=== PATIENT | female | born 1995 | race Caucasian/White ===

== ENCOUNTER → 2019-10-30 13:32 | Outpatient (CLI) | payer MEDICAID, SELFPAY ==
[2019-10-30 10:21] VITALS: BMI 24.0
[2019-10-30 17:46] LABS: Chlamydia Trachomatis by PCR Negative (Negative); Neisserai gonorrhoeae by PCR Negative (Negative); Probe Check PASS; Sample Adequacy Control PASS; Specimen Processing Control PASS
[2019-11-02 15:45] LABS: HPV Reflexed? NOT INDICATED
== END ==
PROVIDERS: Referring Provider Obstetrics & Gynecology; Visit Provider Obstetrics & Gynecology
DX: Z34.00 Encounter for supervision of normal first pregnancy, unspecified trimester (principal); Z12.4 Encounter for screening for malignant neoplasm of cervix
CPT/HCPCS: 87086; 87088; 87491; 87591; 88175; G0145

== ENCOUNTER → 2019-11-13 10:35 | Outpatient (CLI) | payer MEDICAID, SELFPAY ==
[2019-10-30 10:21] VITALS: BMI 24.0
[2019-11-13 10:52] LABS: Absolute Lymphocyte Count 1.62 X10^3/uL (0.83-4.51); Absolute Neutrophil Count 3.8 X10^3/uL (2.0-7.7); Basophil# 0.02 X10^3/uL; Basophil% 0.3 % (0-1); Eosinophil# 0.08 X10^3/uL; Eosinophils% 1.3 % (0-5); Hematocrit 37.4 % (37-47); Lymphocyte # 1.62 X10^3/ul (4.0); Lymphocyte % 27.1 % (19-41); Mean Corp Hgb Conc 34.8 g/dL (32-36); Mean Corpuscular Hgb 31.2 pg (27.0-32.0); Mean Corpuscular Volume 89.7 fL (81-99); Mean Platelet Vol. 9.6 fl (6.2-12.0); Monocyte# 0.42 X10^3/uL; NRBC Flagged by Analyzer 0 % (0-5); Neutrophil # 3.81 X10^3/uL (2.7-7.7); Platelet Count 204 K/mm3 (150-450); RBC Distribution Width CV 12.3 % (11.6-14.6); RBC Distribution Width SD 39.9 fl (35.1-43.9); Red Blood Count 4.17 M/mm3 (4.2-5.4)
[2019-11-13 12:20] LABS: HIV - WCH Non-Reactive (Nonreactive); Hepatitis B Surface Antigen Non-Reactive (Nonreactive); Rubella IgG 82.8 IU/mL
[2019-11-16 00:56] LABS: Rapid Plasmin Reagin (RPR) NONREACTIVE (NONREACTIVE)
== END ==
PROVIDERS: Referring Provider Obstetrics & Gynecology; Visit Provider Obstetrics & Gynecology
DX: Z34.81 Encounter for supervision of other normal pregnancy, first trimester (principal); Z31.430 Encounter of female for testing for genetic disease carrier status for procreative management
CPT/HCPCS: 36415; 85025; 86592; 86703; 86762; 86850; 86900; 86901; 87340

== ENCOUNTER → 2019-12-28 16:12 | Outpatient (CLI) | payer MEDICAID, SELFPAY ==
[2019-12-28 15:52] VITALS: BMI 24.0
== END ==
PROVIDERS: Visit Provider Obstetrics & Gynecology
DX: Z36.9 Encounter for antenatal screening, unspecified (principal)
CPT/HCPCS: 36415

== ENCOUNTER → 2020-04-04 15:28 | Outpatient (CLI) | payer MEDICAID, SELFPAY ==
[2020-02-22 15:27] VITALS: BMI 24.0
[2020-04-04 16:17] LABS: Glucose Challenge Gest 1H 50g 83 mg/dL (70-140)
[2020-04-04 16:32] LABS: Absolute Lymphocyte Count 1.53 X10^3/uL (0.83-4.51); Absolute Neutrophil Count 4.8 X10^3/uL (2.0-7.7); Basophil# 0.01 X10^3/uL; Basophil% 0.1 % (0-1); Eosinophil# 0.05 X10^3/uL; Eosinophils% 0.7 % (0-5); Hematocrit 29.8 % (37-47); Hemoglobin 10.2 g/dL (12.0-15.0); Lymphocyte # 1.53 X10^3/ul (4.0); Lymphocyte % 21.9 % (19-41); Mean Corp Hgb Conc 34.2 g/dL (32-36); Mean Corpuscular Volume 90.6 fL (81-99); Mean Platelet Vol. 10.7 fl (6.2-12.0); Monocyte# 0.59 X10^3/uL; Monocyte% 8.4 % (0-10); NRBC Flagged by Analyzer 0 % (0-5); Neutrophil # 4.79 X10^3/uL (2.7-7.7); Neutrophil % 68.5 % (47-70); Platelet Count 211 K/mm3 (150-450); RBC Distribution Width CV 12.7 % (11.6-14.6); RBC Distribution Width SD 41.8 fl (35.1-43.9); Red Blood Count 3.29 M/mm3 (4.2-5.4)
== END ==
PROVIDERS: Referring Provider Obstetrics & Gynecology; Visit Provider Obstetrics & Gynecology
DX: Z34.00 Encounter for supervision of normal first pregnancy, unspecified trimester (principal); Z67.91 Unspecified blood type, Rh negative
CPT/HCPCS: 36415; 82950; 85025

== ENCOUNTER 2020-04-05 15:39 | Outpatient (CLI) | payer MEDICAID, SELFPAY ==
[2020-04-04 16:51] VITALS: BMI 24.0
--- NOTE | 2020-04-05 15:41 | US_ITS ---
STUDY: SECOND AND THIRD TRIMESTER OBSTETRICAL ULTRASOUND - LIMITED REASON FOR EXAM: Female, 25 years old. Growth. LMP: September 02, 2019. PRIOR ULTRASOUND: None. TECHNIQUE: Transabdominal TECHNICAL QUALITY: Adequate. FINDINGS: There is a single intrauterine fetus. The fetus is in a cephalic presentation. There is demonstrated cardiac activity with a heart rate of 127 bpm. There is a normal amniotic fluid volume. The largest amniotic fluid pocket measures 3.97 cm. The amniotic fluid index (ASHLEY) is 11.88 cm. The placenta is fundal in location. There are Grade 1 placental changes. The cervix measures 3.1 cm cm in length. BIOMETRY: BPD: 8.1 cm: 32 weeks, 4 days HC: 29.52 cm: 32 weeks, 5 days AC: 27.37 cm: 31 weeks, 4 days FL: 5.92 cm: 31 weeks, 0 days Age by LMP: 30 weeks, 6 days. MIESHA by LMP: June 08, 2020. age by current US: 32 weeks, 0 days. MIESHA by current US: May 31, 2020. Estimated weight: 1774 grams, +/- 259 grams, 59 percentile. US/OB Limited With Biometrics IMPRESSION: 1. Live single intrauterine at 32 weeks, 0 days. MIESHA is May 31, 2020. 2. EFW 1774 g. 3. ASHLEY 11.88 cm. 4. Fundal grade 1 placenta. 5. Vertex presentation. Electronically Signed: Marco Marks DO at 22:50 EDT Tel [phone], Service support ,
[2020-04-05 17:12] VITALS: BMI 27.3
== END 2020-04-05 17:30 | disposition home or self-care (01) ==
LOC: US 15:44 → OBT 17:05
PROVIDERS: Referring Provider Obstetrics & Gynecology; Visit Provider Obstetrics & Gynecology
DX: O26.849 Uterine size-date discrepancy, unspecified trimester (principal); O26.899 Other specified pregnancy related conditions, unspecified trimester; Z67.91 Unspecified blood type, Rh negative; Z3A.00 Weeks of gestation of pregnancy not specified
CPT/HCPCS: 36415; 76816; 86850; 86900; 86901; 90384; 96372; 99218; G0378; J2790

== ENCOUNTER → 2020-05-02 16:14 | Outpatient (CLI) | payer MEDICAID, SELFPAY ==
[2020-05-02 15:46] VITALS: BMI 27.3
[2020-05-02 16:40] LABS: Absolute Lymphocyte Count 1.94 X10^3/uL (0.83-4.51); Absolute Neutrophil Count 6.1 X10^3/uL (2.0-7.7); Basophil# 0.03 X10^3/uL; Basophil% 0.3 % (0-1); Eosinophil# 0.14 X10^3/uL; Eosinophils% 1.5 % (0-5); Hematocrit 36.2 % (37-47); Hemoglobin 12.1 g/dL (12.0-15.0); Lymphocyte # 1.94 X10^3/ul (4.0); Lymphocyte % 21.1 % (19-41); Mean Corp Hgb Conc 33.4 g/dL (32-36); Mean Corpuscular Hgb 31.7 pg (27.0-32.0); Mean Corpuscular Volume 94.8 fL (81-99); Mean Platelet Vol. 11.1 fl (6.2-12.0); Monocyte# 0.91 X10^3/uL; Monocyte% 9.9 % (0-10); NRBC Flagged by Analyzer 0 % (0-5); Neutrophil # 6.13 X10^3/uL (2.7-7.7); Neutrophil % 66.5 % (47-70); Platelet Count 200 K/mm3 (150-450); RBC Distribution Width CV 15.5 % (11.6-14.6); RBC Distribution Width SD 52.5 fl (35.1-43.9); Red Blood Count 3.82 M/mm3 (4.2-5.4); White Blood Count 9.2 K/mm3 (4.4-11.0)
== END ==
PROVIDERS: Referring Provider Obstetrics & Gynecology; Visit Provider Obstetrics & Gynecology
DX: O99.019 Anemia complicating pregnancy, unspecified trimester (principal); Z3A.00 Weeks of gestation of pregnancy not specified
CPT/HCPCS: 36415; 85025

== ENCOUNTER → 2020-05-16 16:55 | Outpatient (CLI) | payer MEDICAID, SELFPAY ==
[2020-05-16 15:59] VITALS: BMI 27.3
== END ==
PROVIDERS: Referring Provider Obstetrics & Gynecology; Visit Provider Obstetrics & Gynecology
DX: Z3A.36 36 weeks gestation of pregnancy (principal)
CPT/HCPCS: 87081

== ENCOUNTER 2020-06-04 14:20 | Inpatient (IN) | payer MEDICAID, SELFPAY ==
[2020-05-30 15:54] VITALS: BMI 27.3
[2020-06-04] VITALS (30 sets, daily range): BP systolic 98–134; BP diastolic 57–88; PULSE 64–105; TEMP 36.8–37.3; O2SAT 90–100; BMI 29.3
[2020-06-04 14:21] LABS: ROM Internal Control Test YES-OK TO RESULT pt. (Internal QC); ROM Patient Test POSITIVE (Negative)
[2020-06-04] MEDS: Lactated Ringers 1,000 ML 50 ML IV (15:42)
[2020-06-04 15:46] LABS: Absolute Lymphocyte Count 1.48 X10^3/uL (0.83-4.51); Absolute Neutrophil Count 4.4 X10^3/uL (2.0-7.7); Basophil# 0.03 X10^3/uL; Basophil% 0.5 % (0-1); Eosinophil# 0.04 X10^3/uL; Eosinophils% 0.6 % (0-5); Hematocrit 34.2 % (37-47); Hemoglobin 11.7 g/dL (12.0-15.0); Lymphocyte # 1.48 X10^3/ul (4.0); Lymphocyte % 22.5 % (19-41); Mean Corp Hgb Conc 34.2 g/dL (32-36); Mean Corpuscular Volume 93.4 fL (81-99); Monocyte# 0.56 X10^3/uL; Monocyte% 8.5 % (0-10); NRBC Flagged by Analyzer 0 % (0-5); Neutrophil # 4.44 X10^3/uL (2.7-7.7); Neutrophil % 67.3 % (47-70); Platelet Count 181 K/mm3 (150-450); RBC Distribution Width CV 13.7 % (11.6-14.6); Red Blood Count 3.66 M/mm3 (4.2-5.4); White Blood Count 6.6 K/mm3 (4.4-11.0)
[2020-06-04] MEDS: Oxytocin 30 units/NS 500 ml 30 UNITS/500 ML IV.SOLN IV (16:45)
[2020-06-04] MEDS: fentaNYL-bupivacaine (epidural) 100 ML BAG EPIDURAL ×2 (19:00→22:06)
--- NOTE | 2020-06-04 20:08 | NURSING ---
During bedside reporting Pitocin running at 6ml/hr per prior RN.
[2020-06-04] MEDS: Lactated Ringers 1,000 ML 200 ML IV (22:07)
[2020-06-05] VITALS (17 sets, daily range): BP systolic 98–131; BP diastolic 54–81; PULSE 57–91; RESP 14–18; TEMP 36.4–37.1; O2SAT 98
[2020-06-05] MEDS: Ondansetron 4 MG/2 ML Vial IV (00:23)
[2020-06-05] MEDS: 0.9% Saline Lock 10 ML Syringe IV ×2 (00:23→04:34)
--- NOTE | 2020-06-05 01:12 | HP.PCM_ITS ---
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 FOB negative for 11/02. (4) Rh negative status during Status: Acute Qualifiers: Comment: rhogam was given at 28 weeks and prn (5) Supervision of normal first Status: Acute Qualifiers: Comment: PRR MIESHA 06/08/20 girl Fozia Palomino (6) Status: Acute Qualifiers: Comment: low risk nipt, carrier reviewed. afp negative. normal anatomy; normal growth on 04/05/20 History Date of Admission: 06/04/20 Final MIESHA: 06/08/20 Gestational age: 39 Weeks and 4 Days History of this : This is a 25 year-old, , at 39 weeks gestational age in active labor with spontaneous rupture of membranes. Patient was 2 to 3 cm dilated 70% and -1 station upon admission. Clear fluid since this morning. SHe has had an uncomplicated . Medical History: Medical History (Last Reviewed 05/30/20 @ 15:51 by Niki Malave) No significant past medical history Surgical History: Surgical History (Last Reviewed 05/30/20 @ 15:51 by Niki Malave) No significant past surgical history Allergies No Known Allergies Allergy (Verified 06/04/20 15:06) Home Medications: Home Medications multivitamin no.47-iron fum 27 mg-folate no.1 1 mg-dha 300 mg capsule 1 cap PO DAILY cap 10/30/19 Ferrous Gluconate 324 mg PO 06/04/20 Smoking Status: Never smoker Alcohol: None Number of Fetus(es): 1 NST - FHR Rate Baby A Baseline: 130 Variability:: Moderate Accelerations:: 15 x 15 Decelerations:: None NST Reactive:: Yes FHR Category:: Category I Uterine Activity:: irregular History Past Pregnancies: Past Pregnancies Delivery Date Name GA/ Weeks Outcome Route Wt Sex Labor Length Anesthesia Delivery Location Provider FOB Labs: Mom's Labs & Results 06/04/20 06/04/20 06/04/20 14:00 15:25 15:30 WBC 6.6 RBC 3.66 L Hgb 11.7 L Hct 34.2 L MCV 93.4 MCH 32.0 MCHC 34.2 RDW Std Deviation 46.0 H RDW Coeff of Elvira 13.7 Plt Count 181 MPV 12.0 Immature Gran % (Auto) 0.600 Neut % (Auto) 67.3 Lymph % (Auto) 22.5 Navarro % (Auto) 8.5 Eos % (Auto) 0.6 Baso % (Auto) 0.5 Absolute Neuts (auto) 4.4 Absolute Lymphs (auto) 1.48 Nucleated RBC % 0 Vag Amniotic Fld Detect POSITIVE H COVID-19 (ДМИТРИЙ) Negative Blood Type Antibody Screen 06/04/20 15:30 WBC RBC Hgb Hct MCV MCH MCHC RDW Std Deviation RDW Coeff of Elvira Plt Count MPV Immature Gran % (Auto) Neut % (Auto) Lymph % (Auto) [place]arro % (Auto) Eos % (Auto) Baso % (Auto) Absolute Neuts (auto) Absolute Lymphs (auto) Nucleated RBC % Vag Amniotic Fld Detect COVID-19 (ДМИТРИЙ) Blood Type A NEGATIVE Antibody Screen NEGATIVE Course Did the patient receive Yes care? Labs Blood Type: A RH: NEGATIVE RPR/VDRL/Syphilis Nonreactive Rubella status Immune HbSAg Negative Date Done: 11/13/19 Chlamydia Negative Gonorrhea Negative HIV/AIDS Non-Reactive Group B Strep: Negative Current Obstetrical History Gestational Diabetes No Incompetent Cervix No Infertility No IUGR No Macrosomia No Hypertension/Pre-eclampsia No Placenta Previa/Abruption No PTL/PROM No Uterine anomaly No Oligohydramnios No Polyhydramnios No Multiple gestation No Past Medical History Asthma No Diabetes No Hypertension No Heart disease No Mitral valve prolapse No Neurologic/Seizure disorder/ No Migraines Kidney disease No Liver disease No Varicosities No Clotting disorders/Hx of DVT No Thyroid Dysfunction No Other medical diseases No Psychiatric disorders No Major trauma No Abnormal PAP smear No Sleep apnea No Mammogram in the last 2 years No Social History Marital Status: SINGLE Alleged father Jose Hx Smoking No Smoking Status Never smoker Expected Delivery Method: Spontaneous Vaginal Review of Systems Constitutional: Denies: Fever, Malaise Eyes: Denies: Blurred vision, Vision Change HEENT: Denies: Head Aches, Visual Changes Cardiovascular: Denies: Chest Pain, Palpitations Respiratory: Denies: Cough, Shortness of Breath, Wheezing Gastrointestinal: Denies: Abdominal Pain, Diarrhea, Nausea, Vomiting Genitourinary: Denies: Dysuria, Hematuria Musculoskeletal: Denies: Joint Pain, Muscle pain Skin: Denies: Lesions, Rash Neurological: Denies: Blurred vision, Focal weakness, Headaches Psychiatric: Denies: Anxiety, Depression Endocrine: Denies: Heat/ Cold Intolerance Hematologic/ Lymphatic: Denies: Easy Bruising, Easy Bleeding Physical Exam Vitals: Vital Signs Temp Pulse BP Pulse Ox 98.1 F 78 131/70 H 90 06/05/20 00:31 06/05/20 00:31 06/05/20 00:06/04/20 23:04 General: Alert, Cooperative, No apparent distress HEENT: Atraumatic, Normocephalic. Negative for: Thyromegaly, Lymphadenopathy Cardiovascular: Regular rate Lungs: Normal air movement Abdomen: Soft, Non Tender, Gravid Neurological: Deep Tendon Reflexes 2+/4 and Symmetrical, Neuro grossly intact. 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 Negative for: Vulvar lesions Estimated gestational size: Appropriate for gestational size Presentation: Cephalic Assessment/Plan All Active Problems (Last Reviewed 05/30/20 @ 15:51 by Niki Malave) SROM (spontaneous rupture of membranes) (Acute) Anemia affecting (Acute) screening encounter (Acute) Rh negative status during (Acute) Supervision of normal first (Acute) (Acute) Physical exam, pre-employment (Resolved) This is a 25 year-old, , at 39 weeks gestational age presents IAL. Patient presents IAL, plan expectant management for , Pitocin PRN. Pain management: Plans epidural. GBS negative. Management of any complications: None I have reviewed the [facility] and made any clinically relevant updates.
--- NOTE | 2020-06-05 01:16 | PCM.OPRPT ---
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 FOB negative for 11/02. (4) Rh negative status during Status: Acute Qualifiers: Comment: rhogam was given at 28 weeks and prn (5) Supervision of normal first Status: Acute Qualifiers: Comment: PRR MIESHA 06/08/20 girl Fozia Palomino (6) Status: Acute Qualifiers: Comment: low risk nipt, carrier reviewed. afp negative. normal anatomy; normal growth on 04/05/20 Vaginal Delivery Maternal Presentation: Active Labor, Spontaneous Rupture of Membranes ial srom Amniotic Fluid Description: Clear Final MIESHA: 06/08/20 Gestational age: 39 Weeks and 4 Days Date of Procedure: 06/05/20 Pre-Operative Diagnosis: srom Post-Operative Diagnosis: same Surgery/ Procedure Performed: Spontaneous Vaginal Delivery Type of Anesthesia: Epidural Description of Procedure: Patient began pushing and delivered the head in the [ASHLYN] presentation. The head was delivered atraumatically [and a loose nuchal cord ?1 was identified and easily reduced over the 's head]. The anterior and posterior shoulders delivered without complication followed by the rest of the and the was placed on the maternal abdomen. Delayed cord clamping was employed for approximately 60 seconds. Cord was clamped and cut and gentle traction was applied to the cord and the placenta delivered spontaneously immediately following it was noted to be intact with three-vessel cord. The perineum and vagina were inspected and [noted to have no laceration]. EBL was [100 cc]. Patient and infant tolerated delivery well. Infant A gender: Female Medications given after delivery: IV Pitocin Complications: None Multi Select Codes - Urinary/Genital Urinary/Genital CPT Codes: 51207 Vaginal Delivery global pkg
[2020-06-05] MEDS: Oxytocin 30 units/NS 500 ml 30 UNITS/500 ML IV.SOLN 334 UNITS IV (01:34)
[2020-06-05] MEDS: Naproxen 250 MG Tablet 500 MG PO ×2 (04:33→13:57)
[2020-06-05] MEDS: Acetaminophen 500 MG Tablet 1000 MG PO (10:08)
[2020-06-06 01:00] VITALS: BP 123/75; PULSE 68; RESP 18; TEMP 37.3
[2020-06-06 04:00] VITALS: BP 115/70; PULSE 69; RESP 18; TEMP 37.1
--- NOTE | 2020-06-06 07:48 | PCM.PN.OB ---
Patient Problems: Active and Suspected Problems (Last Reviewed 05/30/20 @ 15:51 by Niki Malave) SROM (spontaneous rupture of membranes) (Acute) Subjective: Doing well, no complaints.Pain controlled. Denies CP, SOB, N,V. Ambulating well, tolerating po. Lochia moderate, going well. - Physical Exam Vitals/I&O's: Vital Signs Temp Pulse Resp BP Pulse Ox 99.1 F 68 18 123/75 H 98 06/06/20 01:00 06/06/20 01:00 06/06/20 01:00 06/06/20 01:00 06/05/20 02:14 Oxygen Delivery Method Room Air Weight: 171 lb Body Mass Index (BMI) 29.3 Intake and Output for Last 24 Hours 06/04/20 06/05/20 06/06/20 23:59 23:59 23:59 Intake Total 846.73 / 846.73 1216.17 / 1216.17 Output Total 400 / 400 700 / 700 Balance 446.73 / 446.73 516.17 / 516.17 General: Alert, Oriented x3 Abdomen: Soft, Non Tender, - - FF below U Laboratory Results 06/05/20 07:30: Screen NEGATIVE, Baby's Blood Type A POSITIVE, Baby's PATO NEGATIVE Current Medications Acetaminophen (Tylenol) 1,000 mg PO Q8H PRN PRN PRN Reason: Pain Score 1-3/10 Last Admin: 06/05/20 10:08 Dose: 1,000 mg Documented by: Bisacodyl (Dulcolax) 10 mg RECTAL UD PRN PRN Reason: If no BM Dibucaine (Dibucaine) 1 applic TOPICAL TID PRN PRN; Protocol PRN Reason: Discomfort Hydrocortisone (Hytone) 1 applic TOPICAL TID PRN PRN; Protocol PRN Reason: Discomfort Methylergonovine Maleate (Methergine) 0.2 mg IM X1 PRN PRN Reason: Excess bleeding/uterine atony Naproxen (Naprosyn) 500 mg PO Q8H PRN PRN PRN Reason: Pain Score 1-3/10 Last Admin: 06/05/20 13:57 Dose: 500 mg Documented by: Ondansetron HCl (Zofran) 4 mg IV Q4H PRN PRN PRN Reason: Nausea Oxycodone HCl (Oxyir) 5 - 10 mg PO Q4H PRN PRN PRN Reason: Pain Score 4-10/10 Senna/Docusate Sodium (Senokot-S, Opal-Colace) 1 - 2 tablet PO DAILY PRN PRN PRN Reason: Constipation Simethicone (Mylicon) 80 mg PO PCHS PRN PRN Reason: Indigestion/Stomach pain Sodium Chloride () 5 - 15 ml IV UD PRN PRN Reason: SALINE FLUSH Last Admin: 06/05/20 04:34 Dose: 10 ml Documented by: Assessment/Plan All Active Problems (Last Reviewed 05/30/20 @ 15:51 by Niki Malave) SROM (spontaneous rupture of membranes) (Acute) Anemia affecting (Acute) screening encounter (Acute) Rh negative status during (Acute) Supervision of normal first (Acute) (Acute) Physical exam, pre-employment (Resolved) s/p PPD # 1 1. routine post delivery care 2. breast feeding- support given 3. rh negative 4. rubella immune 5. home today
--- NOTE | 2020-06-06 07:49 | DCINST_ITS ---
Additional Instructions: If you experience any of the following, contact your healthcare provider. * Bleeding that soaks a pad every hour for 2 hours * Fever 100.4 or higher * Unrelieved incision or abdominal pain * Swelling, redness, discharge or bleeding from your incision or episiotomy site * Your incision begins to separate * Problems urinating (including inability to urinate or burning while urinating). * Visual changes * Severe headache * Flu-like symptoms * Pain or redness in one of both of your breasts * Pain, warmth, tenderness or swelling in your legs, especially the calf area * Frequent nausea and vomiting * Symptoms of depression or anxiety If you experience any of the following, call 911 or go to the nearest Emergency Room. * Chest pain * Problems breathing * Seizure activity * Partial or complete paralysis of a body part, slurred speech, weakness or drooping of the face, or a sudden inability to walk or hold your balance Allergies/Adverse Reactions: Allergies No Known Allergies Allergy (Verified 06/04/20 15:06) Medications to take at Discharge multivitamin no.47-iron fum 27 mg-folate no.1 1 mg-dha 300 mg capsule 1 cap PO DAILY cap 10/30/19 Ferrous Gluconate 324 mg PO 06/04/20 Primary Care Physician: Care Physician,No Primary [Primary Care Provider] - Test Results: Test results from this visit will be discussed in further detail at your follow- up appointment, if applicable.
--- NOTE | 2020-06-06 07:49 | PCM.DCVAG ---
Additional Instructions: If you experience any of the following, contact your healthcare provider. Bleeding that soaks a pad every hour for 2 hours Fever 100.4 or higher Unrelieved incision or abdominal pain Swelling, redness, discharge or bleeding from your incision or episiotomy site Your incision begins to separate Problems urinating (including inability to urinate or burning while urinating). Visual changes Severe headache Flu-like symptoms Pain or redness in one of both of your breasts Pain, warmth, tenderness or swelling in your legs, especially the calf area Frequent nausea and vomiting Symptoms of depression or anxiety If you experience any of the following, call 911 or go to the nearest Emergency Room. Chest pain Problems breathing Seizure activity Partial or complete paralysis of a body part, slurred speech, weakness or drooping of the face, or a sudden inability to walk or hold your balance Allergies/Adverse Reactions: Allergies No Known Allergies Allergy (Verified 06/04/20 15:06) Medications to take at Discharge multivitamin no.47-iron fum 27 mg-folate no.1 1 mg-dha 300 mg capsule 1 cap PO DAILY cap 10/30/19 Ferrous Gluconate 324 mg PO 06/04/20 Primary Care Physician: Care Physician,No Primary [Primary Care Provider] - Test Results: Test results from this visit will be discussed in further detail at your follow-up appointment, if applicable.
[2020-06-06 09:15] VITALS: BP 128/78; PULSE 68; RESP 16; TEMP 36.4
== END 2020-06-06 10:30 | disposition home or self-care (01) | DRG 560 ==
LOC: WPOUT 14:25 → WP 14:25
PROVIDERS: Admitting Provider Obstetrics & Gynecology; Referring Provider Obstetrics & Gynecology; Visit Provider Obstetrics & Gynecology
DX: O42.92 Full-term premature rupture of membranes, unspecified as to length of time between rupture and onset of labor (principal); O69.81X0 Labor and delivery complicated by cord around neck, without compression, not applicable or unspecified; O36.0130 Maternal care for anti-D [Rh] antibodies, third trimester, not applicable or unspecified; O99.284 Endocrine, nutritional and metabolic diseases complicating childbirth; E71.311 Medium chain acyl CoA dehydrogenase deficiency; O99.02 Anemia complicating childbirth; D64.9 Anemia, unspecified; Z3A.39 39 weeks gestation of pregnancy; Z37.0 Single live birth
CPT/HCPCS: 59025; 59050; 84112; 85025; 85461; 86850; 86900; 86901; 87635; 90384; 99218; G2023; J7120; A4216; G0378; J2405; J2790; U0003

== ENCOUNTER 2021-01-30 18:36 | Emergency (ER) | payer MEDICAID, SELFPAY ==
[2020-07-15 09:48] VITALS: BMI 24.7
[2021-01-30 18:37] VITALS: BP 118/78; PULSE 99; RESP 18; TEMP 36.7; O2SAT 98; BMI 24.0
[2021-01-30 18:41] VITALS: BP 118/78; PULSE 99; RESP 18; TEMP 36.7; O2SAT 98
--- NOTE | 2021-01-30 18:54 | CT_ITS ---
STUDY: CT ABDOMEN AND PELVIS WITHOUT CONTRAST REASON FOR EXAM: Female, 25 years old. Kidney Stone RADIATION DOSAGE (If Supplied By Facility): CTDIvol = ( 6.72 ) mGy, DLP = ( 322.21 ) mGycm TECHNIQUE: Transaxial images were obtained from the dome of the diaphragm to the symphysis pubis without oral contrast, and without intravenous contrast. Sagittal and coronal images were reconstructed. Individualized dose optimization techniques were used for this CT. COMPARISON: None. FINDINGS: The visualized lung bases are unremarkable. The visualized portions of the heart are within normal limits. Normal liver. Contracted thick-walled gallbladder without calcified stones possibly physiologic. If concern for gallbladder disease ultrasound recommended. Normal spleen. Normal pancreas. Normal bilateral adrenal glands. Normal right kidney. Normal left kidney. Normal visualized stomach. Normal small intestine. Normal colon. Normal appendix is not clearly visualized however there are no secondary signs for acute appendicitis. Normal abdominal aorta. Normal inferior vena cava. Normal retroperitoneum. Incompletely distended thick-walled bladder likely of no significance. Trace of fluid in the pelvis on the right which may be consistent with recent ovulation. Normal abdominal wall. Mild degenerative changes at L5-S1 CT/Abdomen/Pelvis without Cont IMPRESSION: No evidence for renal obstruction or ureteral calculus Contracted thick-walled gallbladder without calcified stones likely physiologic however if concern for gallbladder disease ultrasound recommended. No evidence for acute appendicitis Trace amount of fluid in the cul-de-sac likely due to ovulation.. Electronically Signed: Atul Livingston MD at 20:02 EST , Service support ,
--- NOTE | 2021-01-30 18:56 | ED.VIS.GEN ---
History of Present Illness Chief Complaint: Abd Pain Informant: Patient Narrative: This is a very pleasant 25-year-old female presenting for the sudden onset of right lower quadrant abdominal pain. Patient states about 2:00 she has sudden onset of pain. It briefly went away and then came back more severe. States that she went to the bathroom prior to arrival her bowel movements seem to make it worse. She states the pain feels like a severe gas bubble. Nonradiating. No nausea vomiting. Normal bowel movements. She has been having normal menstrual cycles. She does note the past couple days her urine has seemed darker than normal. She is currently breast-feeding. No history of ovarian cyst, kidney stones. No prior abdominal surgeries. Past Medical History - Allergies and Home Meds Allergies/Adverse Reactions: Allergies No Known Allergies Allergy (Verified 01/30/21 18:41) Primary Care Physician: Care Physician,No Primary [Primary Care Provider] - Past Medical History: None Surgical History: no surgical history Lives: Spouse/ Significant Other Smoking Status: Never smoker Drugs: None Review of Systems General: Denies: Chills, Fever, Sweats Eyes: Denies: Visual changes - bilaterally, Diplopia ENT: Denies: Rhinorrhea, Sore throat Cardiovascular: Denies: Chest pain, Palpitations Respiratory: Denies: Dyspnea, Cough, Dyspnea on exertion Gastrointestinal: Reports: Abdominal pain. Denies: Nausea, Vomiting, Diarrhea, Melena, Hematochezia Genitourinary: Denies: Dysuria, Hematuria, Frequency Musculoskeletal: Denies: Back pain, Extremity Pain Skin: Denies: Rash, Wounds Neurological: Denies: Headache, Weakness, Numbness Physical Exam Vital Signs/Narrative: Vital Signs Temp Pulse Resp BP Pulse Ox 01/30/21 18:41 98.0 F 99 18 118/78 98 01/30/21 18:37 98.0 F 99 18 118/78 98 Inital Vital Signs reviewed: Yes General: Well nourished, Well developed, No Acute Distress Head: Normocephalic, Atraumatic Eyes: Perrl, EOMI ENT: Moist mucous membranes, No rhinorrhea Neck: Supple, Nontender Cardiovascular: Regular rate, Regular rhythm, No murmurs Respiratory: No distress, CTA bilaterally, Chest nontender Abdomen: Soft, Nondistended, Normal bowel sounds, Tender Back: Nontender, Normal Inspection Extremities: Nontender, No edema Skin: Normal color, No rash Neurological: Alert, Oriented x3, Cranial nerves II-XII grossly intact, Normal Strength, Normal Sensation Psychological: Normal affect, Normal Mood Diagnostic/Tx/Re-eval Clinical Impression(s) from Imaging Studies Abdomen/Pelvis CT 01/30/21 18:54 IMPRESSION: No evidence for renal obstruction or ureteral calculus Contracted thick-walled gallbladder without calcified stones likely physiologic however if concern for gallbladder disease ultrasound recommended. No evidence for acute appendicitis Trace amount of fluid in the cul-de-sac likely due to ovulation.. Electronically Signed: Atul Livingston MD at 20:02 EST , Service support , Laboratory Last Values WBC 4.9 K/mm3 (4.4-11.0) 01/30/21 19:20 RBC 4.36 M/mm3 (4.2-5.4) 01/30/21 19:20 Hgb 13.4 g/dL (12.0-15.0) 01/30/21 19:20 Hct 39.8 % (37-47) 01/30/21 19:20 MCV 91.3 fL (81-99) 01/30/21 19:20 MCH 30.7 pg (27.0-32.0) 01/30/21 19:20 MCHC 33.7 g/dL (32-36) 01/30/21 19:20 RDW Std Deviation 41.2 fl (35.1-43.9) 01/30/21 19:20 RDW Coeff of Elvira 12.5 % (11.6-14.6) 01/30/21 19:20 Plt Count 251 K/mm3 (150-450) 01/30/21 19:20 MPV 9.7 fl (6.2-12.0) 01/30/21 19:20 Immature Gran % (Auto) 0.200 % (0.0-0.9) 01/30/21 19:20 Neut % (Auto) 57.8 % (47-70) 01/30/21 19:20 Lymph % (Auto) 26.4 % (19-41) 01/30/21 19:20 Swain % (Auto) 11.9 % (0-10) H 03/11/21 19:20 Eos % (Auto) 3.1 % (0-5) 01/30/21 19:20 Baso % (Auto) 0.6 % (0-1) 01/30/21 19:20 Absolute Neuts (auto) 2.8 X10^3/uL (2.0-7.7) 01/30/21 19:20 Absolute Lymphs (auto) 1.29 X10^3/uL (0.83-4.51) 01/30/21 19:20 Nucleated RBC % 0 % (0-5) 01/30/21 19:20 Sodium 141 mmol/L (136-145) 01/30/21 19:20 Potassium 4.0 mmol/L (3.5-5.1) 01/30/21 19:20 Chloride 108 mmol/L (98-107) H 01/30/21 19:20 Carbon Dioxide 27.0 mmol/L (21.0-32.0) 01/30/21 19:20 Anion Gap 6 (5-15) 01/30/21 19:20 BUN 12 mg/dL (7-18) 01/30/21 19:20 Creatinine 0.75 mg/dL (0.55-1.02) 01/30/21 19:20 Estim Creat Clear Calc 99.02 ml/min 01/30/21 19:20 Est GFR (MDRD) Af Amer 120 mL/min (>60) 01/30/21 19:20 Est GFR (MDRD) Non-Af 99 mL/min (>60) 01/30/21 19:20 BUN/Creatinine Ratio 16.0 RATIO (10-20) 01/30/21 19:20 Glucose 103 mg/dL (74-106) 01/30/21 19:20 Calcium 8.8 mg/dL (8.5-10.1) 01/30/21 19:20 Serum , Qual NEGATIVE Negative 01/30/21 19: Urine Color Yellow (Yellow) 01/30/21 19:22 Urine Clarity Clear (Clear) 01/30/21 19: Urine pH 7.0 (5.0 - 8.0) 01/30/21 19: Ur Specific [place] 1.010 (1.002-1.030) 01/30/21 19:22 Urine Protein Negative mg/dl (Negative) 01/30/21 19:22 Urine Glucose (UA) Normal mg/dl (Normal) 01/30/21 19:22 Urine Ketones Negative mg/dl (Negative) 01/30/21 19:22 Urine Occult Blood Negative /ul (Negative) 01/30/21 19:22 Urine Nitrite Negative (Negative) 01/30/21 19:22 Urine Bilirubin Negative mg/dL (Negative) 01/30/21 19:22 Urine Urobilinogen 1 mg/dl (Normal) H 01/30/21 19:22 Ur Leukocyte Esterase 100 /ul (Negative) H 01/30/21 19:22 Urine RBC 0 SEEN /hpf (0-5) 01/30/21 19:22 Urine WBC 0-5 SEEN /hpf (0-5) 01/30/21 19:22 Ur Squamous Epith Cells 5-10 SEEN /hpf (5-10) 01/30/21 19:22 Urine Bacteria RARE /hpf (None Seen) 01/30/21 19: Urine Mucus 0 SEEN /hpf (<or=2+) 01/30/21 19:22 - Medical Decision Making Received Toradol and very shortly her symptoms abruptly resolved and she has been fine. I do not see blood in the urine or infection. I do not see a kidney stone or obvious ovarian cyst. There is appears to be some physiologic fluid in the pelvis. Appendix is normal. What I do see when I reviewed the CT is a significantly more amount of stool on the right in the area that she hurts as compared to the left. I think it is possible that this could be stool. The patient will be given a prescription for Toradol and magnesium citrate should her pain return. She is unable to control the pain return back to the emergency room. ED Disposition - Plan for ED Patient: Disposition: Home or Assisted Living Diagnosis: Acute abdominal pain Instructions: ED Abdominal Pain Unkn Cause Fem Prescriptions: Magnesium Citrate [Citrate Of Magnesia] 300 ml PO X1 #1 bottle Prescription Printed Ketorolac [Toradol] 10 mg PO Q8H PRN #12 tab PRN Reason: Pain Prescription Printed Additional Instructions: Follow-up with your primary care physician as needed. Return to the emergency department if continued symptoms over the next 24 hours or pain is not controlled or you are worsening or have concerns
[2021-01-30] MEDS: 0.9% Normal Saline 1,000 ML 999 ML IV (19:21)
[2021-01-30 19:27] LABS: Mucous, Urine 0 SEEN /hpf (<or=2+); Red Blood Cells-Urine 0 SEEN /hpf (0-5)
[2021-01-30 19:28] LABS: Glucose, Dipstick Normal (Normal); Ketone-Dipstick Negative (Negative); Leukocyte Esterase-Dipstick 100 /ul (Negative); Nitrite-Dipstick Negative (Negative); Occult Blood-Urine Negative /ul (Negative); Protein-Dipstick Negative (Negative); Urine Bilirubin Dipstick Negative (Negative); Urine Urobilinogen 1 mg/dl (Normal)
[2021-01-30 19:29] LABS: Color, Urine Yellow (Yellow); Urine Clarity Clear (Clear)
[2021-01-30 19:30] LABS: Absolute Lymphocyte Count 1.29 X10^3/uL (0.83-4.51); Absolute Neutrophil Count 2.8 X10^3/uL (2.0-7.7); Basophil# 0.03 X10^3/uL; Basophil% 0.6 % (0-1); Eosinophil# 0.15 X10^3/uL; Eosinophils% 3.1 % (0-5); Hematocrit 39.8 % (37-47); Hemoglobin 13.4 g/dL (12.0-15.0); Lymphocyte # 1.29 X10^3/ul (4.0); Lymphocyte % 26.4 % (19-41); Mean Corp Hgb Conc 33.7 g/dL (32-36); Mean Corpuscular Hgb 30.7 pg (27.0-32.0); Mean Corpuscular Volume 91.3 fL (81-99); Mean Platelet Vol. 9.7 fl (6.2-12.0); Monocyte# 0.58 X10^3/uL; Monocyte% 11.9 % (0-10); NRBC Flagged by Analyzer 0 % (0-5); Neutrophil # 2.82 X10^3/uL (2.7-7.7); Neutrophil % 57.8 % (47-70); Platelet Count 251 K/mm3 (150-450); RBC Distribution Width CV 12.5 % (11.6-14.6); RBC Distribution Width SD 41.2 fl (35.1-43.9); Red Blood Count 4.36 M/mm3 (4.2-5.4); White Blood Count 4.9 K/mm3 (4.4-11.0)
[2021-01-30 19:33] LABS: Bacteria RARE /hpf (None Seen)
[2021-01-30 19:34] LABS: Squamous Epithelial Cells - UA 5-10 SEEN /hpf (5-10); White Blood Cells 0-5 SEEN /hpf (0-5)
[2021-01-30 19:40] LABS: Internal QC Validated? YES +Cl - CLEAR BKGD; Pregnancy, Serum, hCG Quali. NEGATIVE Negative
[2021-01-30 19:44] LABS: Anion Gap 6 (5-15); BUN 12 mg/dL (7-18); Calcium,Total 8.8 mg/dL (8.5-10.1); Chloride 108 mmol/L (98-107); Creatinine, Serum 0.75 mg/dL (0.55-1.02); EST Glomerular Filtration Rate 99 mL/min (>60); Est Glom Filt Rate - Afr Amer 120 mL/min (>60); Estimated Creatinine Clearance 99.02 ml/min; Glucose 103 mg/dL (74-106); Sodium Level 141 mmol/L (136-145)
[2021-01-30 20:22] VITALS: BP 113/73; PULSE 70; RESP 16
== END 2021-01-30 20:25 | disposition home or self-care (01) ==
PROVIDERS: Emergency Provider Emergency Medicine
DX: R10.31 Right lower quadrant pain (principal)
CPT/HCPCS: 74176; 80048; 81001; 84703; 85025; 99284; J7030; A4216

== ENCOUNTER → 2021-10-30 13:54 | Outpatient (CLI) | payer MEDICAID, SELFPAY ==
[2021-10-30 15:36] LABS: Amphetamine Urine VISTA NEGATIVE (<1000 ng/mL); Barbiturate Urine VISTA NEGATIVE (< 200 ng/mL); Benzodiazepine Urine VISTA NEGATIVE (< 200 ng/mL); Cocaine Urine VISTA NEGATIVE (< 300 ng/mL); Ecstacy Urine VISTA NEGATIVE (< 500 ng/mL); Methadone Urine VISTA NEGATIVE (< 300 ng/mL); PCP Urine VISTA NEGATIVE (< 25 ng/mL); THC Urine VISTA POSITIVE (< 50 ng/mL); Vista UDS pH Range 5
[2021-11-03 22:06] LABS: Chlamydia By Nucleic Acid AMP Negative (Negative)
[2021-11-03 23:21] LABS: Gonococcus By Nucleic Acid AMP Negative (Negative)
== END ==
PROVIDERS: Visit Provider Obstetrics & Gynecology
DX: Z34.90 Encounter for supervision of normal pregnancy, unspecified, unspecified trimester (principal)
CPT/HCPCS: 80307; 87086; 87088; 87491; 87591

== ENCOUNTER 2021-12-24 11:24 | Outpatient (CLI) | payer MEDICAID, SELFPAY ==
[2021-12-24 12:54] LABS: Amphetamine Urine VISTA NEGATIVE (<1000 ng/mL); Barbiturate Urine VISTA NEGATIVE (< 200 ng/mL); Benzodiazepine Urine VISTA NEGATIVE (< 200 ng/mL); Cocaine Urine VISTA NEGATIVE (< 300 ng/mL); Ecstacy Urine VISTA NEGATIVE (< 500 ng/mL); Methadone Urine VISTA NEGATIVE (< 300 ng/mL); PCP Urine VISTA NEGATIVE (< 25 ng/mL); THC Urine VISTA POSITIVE (< 50 ng/mL); Vista UDS pH Range 5
== END 2021-12-24 23:59 | disposition short-term general hospital (02) ==
LOC: LABSPEC 11:28
PROVIDERS: Visit Provider Nurse Practitioner Women's Health
DX: Z87.898 Personal history of other specified conditions (principal)
CPT/HCPCS: 80307

== ENCOUNTER 2022-03-05 15:42 | Outpatient (CLI) | payer MEDICAID, SELFPAY ==
[2022-03-05 16:27] LABS: Absolute Lymphocyte Count 1.67 X10^3/uL (0.83-4.51); Absolute Neutrophil Count 5.2 X10^3/uL (2.0-7.7); Basophil# 0.02 X10^3/uL; Basophil% 0.3 % (0-1); Eosinophil# 0.12 X10^3/uL; Eosinophils% 1.6 % (0-5); Hematocrit 34.3 % (37-47); Hemoglobin 11.7 g/dL (12.0-15.0); Lymphocyte # 1.67 X10^3/ul (0.83-4.51); Lymphocyte % 21.8 % (19-41); Mean Corp Hgb Conc 34.1 g/dL (32-36); Mean Corpuscular Hgb 31.5 pg (27.0-32.0); Mean Corpuscular Volume 92.5 fL (81-99); Mean Platelet Vol. 10.2 fl (6.2-12.0); Monocyte% 7.8 % (0-10); NRBC Flagged by Analyzer 0 % (0-5); Neutrophil # 5.23 X10^3/uL (2.7-7.7); Neutrophil % 68.1 % (47-70); Platelet Count 227 K/mm3 (150-450); RBC Distribution Width CV 13.6 % (11.6-14.6); RBC Distribution Width SD 45.6 fl (35.1-43.9); Red Blood Count 3.71 M/mm3 (4.2-5.4); White Blood Count 7.7 K/mm3 (4.4-11.0)
[2022-03-05 16:57] LABS: Glucose Challenge Gest 1H 50g 89 mg/dL (70-140)
== END 2022-03-05 23:59 | disposition home or self-care (01) ==
LOC: PAVLAB 15:45 → LAB 15:46
PROVIDERS: Referring Provider Obstetrics & Gynecology; Visit Provider Obstetrics & Gynecology
DX: Z13.1 Encounter for screening for diabetes mellitus (principal)
CPT/HCPCS: 36415; 82950; 85025

== ENCOUNTER → 2022-03-17 09:20 | Outpatient (CLI) | payer MEDICAID, SELFPAY ==
[2022-03-17 10:06] LABS: Absolute Lymphocyte Count 1.77 X10^3/uL (0.83-4.51); Absolute Neutrophil Count 4.5 X10^3/uL (2.0-7.7); Basophil# 0.03 X10^3/uL; Basophil% 0.4 % (0-1); Eosinophil# 0.08 X10^3/uL; Eosinophils% 1.2 % (0-5); Hematocrit 34.7 % (37-47); Lymphocyte # 1.77 X10^3/ul (0.83-4.51); Lymphocyte % 26.1 % (19-41); Mean Corp Hgb Conc 34.6 g/dL (32-36); Mean Corpuscular Hgb 31.7 pg (27.0-32.0); Mean Corpuscular Volume 91.8 fL (81-99); Mean Platelet Vol. 10.5 fl (6.2-12.0); Monocyte# 0.38 X10^3/uL; Monocyte% 5.6 % (0-10); NRBC Flagged by Analyzer 0 % (0-5); Neutrophil # 4.48 X10^3/uL (2.7-7.7); Neutrophil % 66.1 % (47-70); Platelet Count 221 K/mm3 (150-450); RBC Distribution Width CV 13.5 % (11.6-14.6); RBC Distribution Width SD 45.1 fl (35.1-43.9); Red Blood Count 3.78 M/mm3 (4.2-5.4); White Blood Count 6.8 K/mm3 (4.4-11.0)
[2022-03-17 11:10] LABS: Amphetamine Urine VISTA NEGATIVE (<1000 ng/mL); Barbiturate Urine VISTA NEGATIVE (< 200 ng/mL); Benzodiazepine Urine VISTA NEGATIVE (< 200 ng/mL); Cocaine Urine VISTA NEGATIVE (< 300 ng/mL); Ecstacy Urine VISTA NEGATIVE (< 500 ng/mL); Methadone Urine VISTA NEGATIVE (< 300 ng/mL); PCP Urine VISTA NEGATIVE (< 25 ng/mL); THC Urine VISTA NEGATIVE (< 50 ng/mL); Vista UDS pH Range 6
[2022-03-17 11:15] LABS: HIV - WCH Non-Reactive (Nonreactive); Hepatitis B Surface Antigen Non-Reactive (Nonreactive); Hepatitis C Antibody Non-Reactive (Nonreactive); Rubella IgG Reactive (Nonreactive); Syphilis Antibodies Non-reactive
== END ==
PROVIDERS: Nurse Practitioner Women's Health; Visit Provider Obstetrics & Gynecology
DX: Z34.90 Encounter for supervision of normal pregnancy, unspecified, unspecified trimester (principal)
CPT/HCPCS: 36415; 80307; 85025; 86703; 86762; 86780; 86803; 86850; 86900; 86901; 87340

== ENCOUNTER 2022-03-17 10:15 | Outpatient (CLI) | payer MEDICAID, SELFPAY ==
[2022-03-17 10:35] VITALS: BMI 28.5
--- NOTE | 2022-03-17 16:30 | OB.TRI.PN ---
Progress Notes Date of Service: 03/17/22 Progress Note: patient was sent to L&D at 29 weeks for a rhogam injection due to supply issues in the office today. The patient denies other complaints, questions, or concerns. Nurses are given orders to administer one unit of rhogam and discharge patient
== END 2022-03-17 11:15 | disposition home or self-care (01) ==
LOC: WPOUT 10:27 → WP 10:28
PROVIDERS: Referring Provider Obstetrics & Gynecology; Visit Provider Obstetrics & Gynecology
DX: Z34.90 Encounter for supervision of normal pregnancy, unspecified, unspecified trimester (principal); Z23 Encounter for immunization
CPT/HCPCS: 36415; 80307; 85025; 86703; 86762; 86780; 86803; 86850; 86900; 86901; 87340; 90384; 96372; 99218; G0378; J2790

== ENCOUNTER → 2022-04-30 | Outpatient (CLI) | payer MEDICAID, SELFPAY | END | disposition home or self-care (01) | LOC: LABSPEC 16:36 | PROVIDERS: Referring Provider Obstetrics & Gynecology; Visit Provider Obstetrics & Gynecology | DX: Z34.80 Encounter for supervision of other normal pregnancy, unspecified trimester (principal) | CPT/HCPCS: 87081 ==

== ENCOUNTER 2022-06-04 21:30 | Inpatient (IN) | payer MEDICAID, SELFPAY ==
[2022-06-04] VITALS (21 sets, daily range): BP systolic 98–138; BP diastolic 66–97; PULSE 69–102; TEMP 35.8–37.3; O2SAT 98–99; BMI 30.4
[2022-06-04] MEDS: Lactated Ringers 1,000 ML 50 ML IV (22:02)
[2022-06-04 22:14] LABS: Basophil# 0.03 X10^3/uL; Basophil% 0.4 % (0-1); Eosinophil# 0.03 X10^3/uL; Eosinophils% 0.4 % (0-5); Hematocrit 34.5 % (37-47); Hemoglobin 12.2 g/dL (12.0-15.0); Lymphocyte % 22.7 % (19-41); Mean Corp Hgb Conc 35.4 g/dL (32-36); Mean Corpuscular Hgb 32.8 pg (27.0-32.0); Mean Corpuscular Volume 92.7 fL (81-99); Mean Platelet Vol. 11.3 fl (6.2-12.0); Monocyte% 9.4 % (0-10); NRBC Flagged by Analyzer 0 % (0-5); Neutrophil # 4.98 X10^3/uL (2.7-7.7); Neutrophil % 66.6 % (47-70); Platelet Count 180 K/mm3 (150-450); RBC Distribution Width SD 43.3 fl (35.1-43.9); Red Blood Count 3.72 M/mm3 (4.2-5.4); White Blood Count 7.5 K/mm3 (4.4-11.0)
[2022-06-04] MEDS: LACTATED RINGERS 500 ML 999 ML IV (22:28)
[2022-06-04 22:42] LABS: Amphetamine Urine VISTA NEGATIVE (<1000 ng/mL); Barbiturate Urine VISTA NEGATIVE (< 200 ng/mL); Benzodiazepine Urine VISTA NEGATIVE (< 200 ng/mL); Cocaine Urine VISTA NEGATIVE (< 300 ng/mL); Ecstacy Urine VISTA NEGATIVE (< 500 ng/mL); Methadone Urine VISTA NEGATIVE (< 300 ng/mL); PCP Urine VISTA NEGATIVE (< 25 ng/mL); THC Urine VISTA NEGATIVE (< 50 ng/mL); Vista UDS pH Range 5
[2022-06-04] MEDS: fentaNYL-bupivacaine (epidural) 100 ML BAG EPIDURAL (23:51)
[2022-06-05] VITALS (48 sets, daily range): BP systolic 88–132; BP diastolic 56–79; PULSE 63–116; RESP 17–18; TEMP 36.4–37.9; O2SAT 93–100
[2022-06-05] MEDS: Oxytocin 30 units/NS 500 ml 30 UNITS/500 ML IV.SOLN IV (02:52)
[2022-06-05] MEDS: Lactated Ringers 1,000 ML 200 ML IV (03:34)
[2022-06-05] MEDS: fentaNYL-bupivacaine (epidural) 100 ML BAG EPIDURAL (04:08)
[2022-06-05] MEDS: LACTATED RINGERS 500 ML 999 ML IV (05:30)
[2022-06-05] MEDS: Oxytocin 30 units/NS 500 ml 30 UNITS/500 ML IV.SOLN 334 UNITS IV (06:53)
--- NOTE | 2022-06-05 07:37 | HP.PCM.OB_ITS ---
HPI - General General Date of Admission: 06/04/22 HPI Narrative TOMAS BERGMAN, is a 27 F who presents IAL, postdates. she has regualr ctx no vb lof good fm. Maternal Data Information MIESHA Calculator Estimated Delivery Date Method Current WG Current Estimate 05/28/22 Ultrasound #1 41w 1d Other Estimates 06/03/22 LMP (Certain) 40w 2d PFSH PFS Medical History (Updated 06/05/22 @ 07:[address] Miranda Schneider MD) Anxiety and depression depression Home Medications multivitamin no.47-iron fum 27 mg-folate no.1 1 mg-dha 300 mg capsule (PNV-DHA) 1 cap PO DAILY Check with primary doctor 10/30/19 [History Last Taken 06/03/22] Allergy/AdvReac Type Severity Reaction Status Date / Time No Known Allergies Allergy Verified 06/04/22 14:02 Family History Aunt Breast cancer Ovarian cancer Surgical History No significant past surgical history Social History adopted: No household members: significant other housing: house number of children: 1 current occupational status: employed current occupation: [employer]- [place] current occupational exposures/hazards: No pets and animals: Yes history of recent travel: No sexually active: Yes Smoking Status: Never smoker second hand exposure: Yes alcohol intake: current alcohol intake frequency: a few times a month details: not while substance use type: does not use seatbelt use: always do you feel safe at home: Yes additional social history: Jose Hernández- History 2 Elective abortions Hx Para 1 Spontaneous abortions Hx # Term Pregnancies Ectopic pregnancies Hx # Pregnancies Multiple births # of living children 1 Past Pregnancies Del. Date Name GA/Weeks Outcome Route Bth Weight Infant Gen Labor Lgth Anesthesia Del Locatn Provider FOB 06/05/20 Fozia 39 live - full term 7lbs 12oz Female 15 hours epidural [facility] Dr. Wyatt Garcia Delivery Date: 06/05/20 Last Updated by: Lizzette THOMAS Visit Details Expected Delivery Route/Plan Labor Preferences- CB/BF classes: no labor support person: Jose labor intervention preferences: [] pain management options preferred: cut cord/dad catch: cord : yes PP control planned: paragard pp discussed possible routes of delivery and associated risks: [] special requests: [] Plans Covid status: non immune counseled regarding risk of covid in vs vaccination and declined vaccination Flu vaccine: declined Tdap vaccine: given Rhogam: [] LARC form signed: yes Problem list reviewed and updated with the most current plan of care details and appropriate orders placed. Relevant counseling for the gestational age provided. Continue routine care and follow up unless otherwise noted in visit notes/problem list details OB Flowsheet Initial Weight: 150 lb Date -?-?-?-?-?-?-?-?-?-?-?-?- EGA Weight BP Urine Prot -?-?-?-?-?-?-?-?-?-?-?-?- Glucose FHR FuHt Pres Dilation -?-?-?-?-?-?-?-?-?-?-?-?- Effaced St Visit Note 10/30/21 -?-?-?-?-?-?-?-?-?-?-?-?- 10w 0d 150 lb (+0 oz) 122/70 -?-?-?-?-?-?-?-?-?-?-?-?- 170 -?-?-?-?-?-?-?-?-?-?-?-?- SM- CRL 2.75cm N OT cons with LMP 11/27/21 -?-?-?-?-?-?-?-?-?-?-?-?- 14w 0d 152 lb 8 oz (+2 lb 8 oz) 120/84 -?-?-?-?-?-?-?-?-?-?-?-?- 160 -?-?-?-?-?-?-?-?-?-?-?-?- JV- no vaginal b leeding or cramping. some nausea and is interested in phenergan and refill in antidepressant. JV- no vaginal bleeding or c ramping. some nausea and is interested in phenergan and refill in antidepressant but after reviewing depression score she does appear depressed and will not be interested in the medication at this time. May consider wellbutrin . 12/24/21 -?-?-?-?-?-?-?-?-?-?-?-?- 17w 6d 156 lb 8 oz (+6 lb 8 oz) 118/70 Negative -?-?-?-?-?-?-?-?-?-?-?-?- Negative 142 -?-?-?-?-?-?-?-?-?-?-?-?- MH-No VB, LOF. F eeling some flutters. MFM anatomy US 12/30. c/o sciatica pain:Dossi 01/20/22 -?-?-?-?-?-?-?-?-?-?-?-?- 21w 5d 158 lb 6 oz (+8 lb 6 oz) 110/72 -?-?-?-?-?-?-?-?-?-?-?-?- 138 -?-?-?-?-?-?-?-?-?-?-?-?- JV- no lof, vagi nal bleeding, or dec fm wants paragard at delivery. 02/19/22 -?-?-?-?-?-?-?-?-?-?-?-?- 26w 0d 162 lb (+12 lb) 102/80 -?-?-?-?-?-?-?-?-?-?-?-?- 140 26 -?-?-?-?-?-?-?-?-?-?-?-?- SM- no vb lof go od fm no regular ctx 03/05/22 -?-?-?-?-?-?-?-?-?-?-?-?- 28w 0d 162 lb 8 oz (+12 lb 8 oz) 120/80 Negative -?-?-?-?-?-?-?-?-?-?-?-?- Negative 140 28 -?-?-?-?-?-?-?-?-?-?-?-?- SM- no vb lof go od fm no reuglar ctx needs rhogam next visit 03/17/22 -?-?-?-?-?-?-?-?-?-?-?-?- 29w 5d 166 lb (+16 lb) 112/70 Trace -?-?-?-?-?-?-?-?-?-?-?-?- Negative 146 30 -?-?-?-?-?-?-?-?-?-?-?-?- -No VB, LOF. G ood FM. 28 wk labs, rhogan, larc, tdap -No VB, LOF. Good FM. 28 w k labs, rhogan(WP), larc, tdap 04/02/22 -?-?-?-?-?-?-?-?-?-?-?-?- 32w 0d 165 lb 8 oz (+15 lb 8 oz) 132/87 122/79 Negative -?-?-?-?-?-?-?-?-?-?-?-?- Negative 140 32 -?-?-?-?-?-?-?-?-?-?-?-?- JV- pt has some pressure on her epigastric region when sitting only. pressure is normal, urine normal. no visual changes or headaches 04/16/22 -?-?-?-?-?-?-?-?-?-?-?-?- 34w 0d 169 lb 6 oz (+19 lb 6 oz) 120/82 Negative -?-?-?-?-?--?-?-?-?-?-?-?- Negative 140 34 -?-?-?-?-?-?-?-?-?-?-?-?- SM- no vb lof go od fm no regular ctx 04/30/22 -?-?-?-?-?-?-?-?-?-?-?-?- 36w 0d 171 lb 2 oz (+21 lb 2 oz) 113/76 Trace -?-?-?-?-?-?-?-?-?-?-?-?- Negative 155 35 0 -?-?-?-?-?-?-?-?-?-?-?-?- JV- no lof, vagi nal bleeding, or dec fm. gbs collected. 05/04/22 -?-?-?-?-?-?-?-?-?-?-?-?- 36w 4d 172 lb (+22 lb) 116/78 Trace -?-?-?-?-?-?-?-?-?-?-?-?- Negative 136 1 -?-?-?-?-?-?-?-?-?-?-?-?- 0 -4 MH-work in for cramping/pressure. No VB, LOF. Good FM. Denies urinary symptoms. Reassured 05/07/22 -?-?-?-?-?-?-?-?-?-?-?-?- 37w 0d 173 lb 8 oz (+23 lb 8 oz) 120/80 Negative -?-?-?-?-?-?-?-?-?-?-?-?- Negative 138 36 1 -?-?-?-?--?-?-?-?-?-?-?-?- 0 -3 JV-GBS neg , no lof, vaginal bleeding, or dec fm. 05/14/22 -?-?-?-?-?-?-?-?-?-?-?-?- 38w 0d 173 lb (+23 lb) 118/79 Negative -?-?-?-?-?-?-?-?-?-?-?-?- Negative 140 38 1 -?-?-?-?-?-?-?-?-?-?-?-?- SM- no vb lof go od fm no regular ctx 05/21/22 -?-?-?-?-?-?--?-?-?-?-?-?- 39w 0d 172 lb (+22 lb) 120/82 Trace -?-?-?-?-?-?-?-?-?-?-?-?- Negative 145 38 1 -?-?-?-?-?-?-?-?-?-?-?-?- -3 JV- no l of, vaginal bleeding, or dec fm. has normal complaints of some nausea and tired of being but overall looking well. plan for 41 week IOL if still next week. 05/28/22 -?-?-?-?-?-?-?-?-?-?-?-?- 40w 0d 177 lb (+27 lb) 132/78 -?-?-?-?-?-?-?-?-?-?-?-?- 140 39 1 -?-?-?-?-?-?-?-?-?-?-?-?- SM- no vb lof go od fm no regular ctx 06/04/22 -?-?-?-?-?-?-?-?-?-?-?-?- 41w 0d 177 lb 0.499 oz (+27 lb 0.499 oz) 119/85 123/81 114/79 138/90 125/78 133/97 98/71 105/74 108/73 110/69 100/67 102/66 105/69 106/67 111/69 88/56 108/67 113/73 105/67 101/68 97/59 100/58 94/65 109/70 103/61 114/59 108/70 115/73 120/77 112/69 -?-?-?-?-?-?-?-?-?-?-?-?- -?-?-?-?-?-?-?-?-?-?-?-?- NST FHR Rate Baby A Baseline: 140 Variability:: Moderate Accelerations:: 15 x 15 Decelerations:: None NST Reactive:: Yes FHR Category:: Category I Uterine Activity:: q3-5 ROS Constitutional Constitutional: Reports systems reviewed and no addt'l complaints, except as documented ENT HEENT: Reports systems reviewed and no addt'l complaints, except as documented Cardiovascular Cardiovascular: Reports systems reviewed and no addt'l complaints, except as documented Respiratory/Chest Respiratory/Chest: Reports systems reviewed and no addt'l complaints, except as documented Gastrointestinal Gastrointestinal: Reports systems reviewed and no addt'l complaints, except as documented and nausea; Denies abdominal pain Genitourinary Genitourinary: Reports systems reviewed and no addt'l complaints, except as documented, contractions Details: present and frequency (regular ) and movement Details: present Musculoskeletal Musculoskeletal: Reports systems reviewed and no addt'l complaints, except as documented Integumentary Integumentary: Reports as per HPI Neurologic Neurologic: Reports systems reviewed and no addt'l complaints, except as documented Endocrine Endocrinology: Reports systems reviewed and no addt'l complaints, except as documented Vital Signs Vital Signs Vital Signs: 06/04/22 21:50 06/04/22 21:50 06/04/22 21:50 Temperature 99.0 F Temperature Source Pulse Rate 99 Blood Pressure 119/85 H BP Systolic 119 BP Diastolic 85 Pulse Ox 06/04/22 21:50 06/04/22 21:50 06/04/22 21:50 Temperature 99.1 F Temperature Source Temporal Pulse Rate Blood Pressure BP Systolic BP Diastolic Pulse Ox 99 06/04/22 23:09 06/04/22 23:09 06/04/22 23:09 Temperature 96.4 F L Temperature Source Pulse Rate 71 Blood Pressure 123/81 H BP Systolic 123 BP Diastolic 81 Pulse Ox 06/04/22 23:15 06/04/22 23:15 06/04/22 23:18 Temperature Temperature Source Pulse Rate 80 100 Blood Pressure 114/79 BP Systolic 114 BP Diastolic 79 Pulse Ox 06/04/22 23:18 06/04/22 23:19 06/04/22 23:19 Temperature Temperature Source Pulse Rate 78 Blood Pressure 138/90 H BP Systolic 138 BP Diastolic 90 Pulse Ox 99 06/04/22 23:23 06/04/22 23:23 06/04/22 23:25 Temperature Temperature Source Pulse Rate 74 Blood Pressure 125/78 H BP Systolic 125 BP Diastolic 78 Pulse Ox 99 06/04/22 23:25 06/04/22 23:28 06/04/22 23:28 Temperature Temperature Source Pulse Rate 69 82 Blood Pressure BP Systolic BP Diastolic Pulse Ox 98 06/04/22 23:30 06/04/22 23:30 06/04/22 23:33 Temperature Temperature Source Pulse Rate 96 83 Blood Pressure 133/97 H BP Systolic 133 BP Diastolic 97 Pulse Ox 06/04/22 23:33 06/04/22 23:38 06/04/22 23:38 Temperature Temperature Source Pulse Rate 92 Blood Pressure BP Systolic BP Diastolic Pulse Ox 99 99 06/04/22 23:39 06/04/22 23:39 06/04/22 23:41 Temperature Temperature Source Pulse Rate 93 Blood Pressure 98/71 105/74 BP Systolic 98 105 BP Diastolic 71 74 Pulse Ox 06/04/22 23:41 06/04/22 23:44 06/04/22 23:44 Temperature Temperature Source Pulse Rate 102 H 82 Blood Pressure 108/73 BP Systolic 108 BP Diastolic 73 Pulse Ox 06/04/22 23:43 06/04/22 23:48 06/04/22 23:48 Temperature Temperature Source Pulse Rate 81 Blood Pressure BP Systolic BP Diastolic Pulse Ox 99 99 06/04/22 23:49 06/04/22 23:49 06/04/22 23:53 Temperature Temperature Source Pulse Rate 78 98 Blood Pressure 110/69 BP Systolic 110 BP Diastolic 69 Pulse Ox 06/04/22 23:53 06/04/22 23:54 06/04/22 23:54 Temperature Temperature Source Pulse Rate 83 Blood Pressure 100/67 BP Systolic 100 BP Diastolic 67 Pulse Ox 99 06/04/22 23:58 06/04/22 23:58 06/04/22 23:59 Temperature Temperature Source Pulse Rate 84 Blood Pressure 102/66 BP Systolic 102 BP Diastolic 66 Pulse Ox 99 06/04/22 23:59 06/05/22 00:03 06/05/22 00:03 Temperature Temperature Source Pulse Rate 98 84 Blood Pressure BP Systolic BP Diastolic Pulse Ox 99 06/05/22 00:04 06/05/22 00:04 06/05/22 00:09 Temperature Temperature Source Pulse Rate 77 Blood Pressure 105/69 106/67 BP Systolic 105 106 BP Diastolic 69 67 Pulse Ox 06/05/22 00:09 06/05/22 00:08 06/05/22 00:14 Temperature Temperature Source Pulse Rate 78 Blood Pressure 111/69 BP Systolic 111 BP Diastolic 69 Pulse Ox 100 06/05/22 00:14 06/05/22 00:13 06/05/22 00:18 Temperature Temperature Source Pulse Rate 93 116 H Blood Pressure BP Systolic BP Diastolic Pulse Ox 100 06/05/22 00:18 06/05/22 00:19 06/05/22 00:19 Temperature Temperature Source Pulse Rate 113 H Blood Pressure 88/56 L BP Systolic 88 BP Diastolic 56 Pulse Ox 99 06/05/22 00:25 06/05/22 00:25 06/05/22 01:00 Temperature Temperature Source Pulse Rate 69 Blood Pressure 108/67 113/73 BP Systolic 108 113 BP Diastolic 67 73 Pulse Ox 06/05/22 01:00 06/05/22 01:30 06/05/22 01:30 Temperature Temperature Source Pulse Rate 69 105 H Blood Pressure 105/67 BP Systolic 105 BP Diastolic 67 Pulse Ox 06/05/22 01:00 06/05/22 01:00 06/05/22 01:00 Temperature 97.8 F Temperature Source Temporal Pulse Rate Blood Pressure BP Systolic BP Diastolic Pulse Ox 100 06/05/22 01:59 06/05/22 01:59 06/05/22 01:30 Temperature Temperature Source Temporal Pulse Rate 82 Blood Pressure 101/68 BP Systolic 101 BP Diastolic 68 Pulse Ox 06/05/22 01:30 06/05/22 01:30 06/05/22 01:59 Temperature 98.2 F Temperature Source Temporal Pulse Rate Blood Pressure BP Systolic BP Diastolic Pulse Ox 98 06/05/22 01:59 06/05/22 02:29 06/05/22 02:29 Temperature 98.2 F Temperature Source Pulse Rate 67 Blood Pressure 97/59 L BP Systolic 97 BP Diastolic 59 Pulse Ox 06/05/22 02:29 06/05/22 02:29 06/05/22 02:29 Temperature 98.5 F Temperature Source Temporal Pulse Rate Blood Pressure BP Systolic BP Diastolic Pulse Ox 97 06/05/22 03:00 06/05/22 03:00 06/05/22 03:03 Temperature 98.1 F Temperature Source Pulse Rate 66 Blood Pressure 100/58 L BP Systolic 100 BP Diastolic 58 Pulse Ox 06/05/22 03:37 06/05/22 03:37 06/05/22 03:36 Temperature Temperature Source Pulse Rate 77 Blood Pressure 94/65 BP Systolic 94 BP Diastolic 65 Pulse Ox 99 06/05/22 03:36 06/05/22 04:17 06/05/22 04:17 Temperature 98.2 F Temperature Source Pulse Rate 97 Blood Pressure 109/70 BP Systolic 109 BP Diastolic 70 Pulse Ox 06/05/22 04:17 06/05/22 05:15 06/05/22 05:15 Temperature 97.7 F L Temperature Source Pulse Rate 78 Blood Pressure BP Systolic BP Diastolic Pulse Ox 100 06/05/22 05:17 06/05/22 05:27 06/05/22 05:27 Temperature 97.7 F L Temperature Source Pulse Rate 83 Blood Pressure 103/61 BP Systolic 103 BP Diastolic 61 Pulse Ox 06/05/22 06:27 06/05/22 06:27 06/05/22 06:27 Temperature 98.8 F Temperature Source Pulse Rate 101 H Blood Pressure BP Systolic BP Diastolic Pulse Ox 93 06/05/22 06:27 06/05/22 06:28 06/05/22 06:28 Temperature Temperature Source Temporal Pulse Rate 90 Blood Pressure 114/59 L BP Systolic 114 BP Diastolic 59 Pulse Ox 06/05/22 06:28 06/05/22 06:28 06/05/22 06:33 Temperature Temperature Source Pulse Rate 82 84 Blood Pressure BP Systolic BP Diastolic Pulse Ox 100 06/05/22 06:33 06/05/22 06:59 06/05/22 06:59 Temperature Temperature Source Pulse Rate 105 H Blood Pressure 108/70 BP Systolic 108 BP Diastolic 70 Pulse Ox 100 06/05/22 07:07 06/05/22 07:07 06/05/22 07:11 Temperature Temperature Source Pulse Rate 81 Blood Pressure 115/73 BP Systolic 115 BP Diastolic 73 Pulse Ox 97 06/05/22 07:11 06/05/22 07:12 06/05/22 07:12 Temperature Temperature Source Pulse Rate 74 77 Blood Pressure BP Systolic BP Diastolic Pulse Ox 98 06/05/22 07:14 06/05/22 07:10 06/05/22 07:10 Temperature 100.2 F H 100.3 F H Temperature Source Temporal Pulse Rate Blood Pressure BP Systolic BP Diastolic Pulse Ox 06/05/22 07:18 06/05/22 07:18 06/05/22 07:22 Temperature Temperature Source Pulse Rate 85 75 Blood Pressure BP Systolic BP Diastolic Pulse Ox 94 06/05/22 07:22 06/05/22 07:26 06/05/22 07:26 Temperature Temperature Source Pulse Rate 76 Blood Pressure 120/77 BP Systolic 120 BP Diastolic 77 Pulse Ox 95 06/05/22 07:27 06/05/22 07:27 Temperature Temperature Source Pulse Rate 75 Blood Pressure BP Systolic BP Diastolic Pulse Ox 95 Weight Weight: 177 lb 0.499 oz Body Mass Index (BMI) 30.4 Physical Exam Const alert, oriented x3 and healthy appearing Constitutional Narrative: uncomfortable with contractions HEENT normocephalic and moist oral mucous membranes Head and Scalp: atraumatic Neck full ROM, no lymphadenopathy, supple and thyroid normal General: trachea midline Thyroid: thyroid normal Lymph Lymphatic: no lymphadenopathy noted Chest inspection of chest normal Resp normal respiratory effort Cardio regular rate GI normal to inspection, nondistended, normoactive bowel sounds, soft to palpation and non-tender Inspection: gravid external exam normal Bimanual Exam - Vag & Uterus: uterus non-tender Manual OB Exam: estimated gestational size appropriate, presentation cephalic, dilated, effaced and station Extremity normal to inspection General Extremity: Negative for edema Skin no rashes or lesions noted Neuro deep tendon reflexes 2+ bilaterally Motor Exam: strength 5/5 throughout and clonus absent Psych mental status grossly normal Labs Labs Labs: Blood Type A NEGATIVE Antibody Screen NEGATIVE Hct 34.5 % (37-47) L Hgb 12.2 g/dL (12.0-15.0) Obstetrics US Syphilis Total Ab Non-reactive Rubella IgG Antibody Reactive (Nonreactive) Hep Bs Antigen Non-Reactive (Nonreactive) Chlamydia DNA (ДМИТРИЙ) Negative (Negative) Neisseria gonorrhoeae DNA (ДМИТРИЙ) Negative (Negative) HIV 1&2 Antibody Non-Reactive (Nonreactive) Glucose 1 Hr 50 gm 89 mg/dL (70-140) Rhogam given: Yes Miscellaneous Test Assessment & Plan (1) : QUALIFIERS: Weeks of gestation: 41 weeks Qualified Code(s): Z3A.41 - 41 weeks gestation of COMMENT: GBS negative, anatomy nl, declines genetics. Carrier neg (2) Supervision of other normal : COMMENT: PRR MIESHA: 05/28/2022 PC: Fozia Spouse: Jose (3) Rh negative status during : QUALIFIERS: Trimester: second trimester Qualified Code(s): O26.892 - Other specified related conditions, second trimester; Z67.91 - Unspecified blood type, Rh negative COMMENT: rhogam prn and at 28 weeks (4) History of marijuana use: COMMENT: + tox screen @ [facility], recommend cessation and random tox screens; 2/2 still positive/summer counselor next visit (5) Contraception management: QUALIFIERS: Contraceptive encounter type: other encounter for contraceptive management Qualified Code(s): Z30.8 - Encounter for other contraceptive management COMMENT: dyllan mao pp (6) History of tetanus, diphtheria, and acellular pertussis booster vaccination (Tdap): COMMENT: given 03/17/22 (7) Anxiety and depression: COMMENT: no meds, encouraged counseling; pp depression and consider med at 36 wk (8) Active labor at term: PLAN: Plan Patient presents IAL, plan expectant management for , pitocin/AROM PRN if needed. Pain management: plans epidural. GBS neg. Management of any complications: none I have reviewed the [facility] and made any clinically relevant updates.
--- NOTE | 2022-06-05 07:43 | EX.PCM.OBRPT ---
Assessment & Plan (1) Vaginal delivery: COMMENT: SM IAL 41 jamila Guillermo Maternal Data Information MIESHA Calculator Estimated Delivery Date Method Current WG Current Estimate 05/28/22 Ultrasound #1 41w 1d Other Estimates 06/03/22 LMP (Certain) 40w 2d Vaginal Delivery Operative Information Date of Procedure: 06/05/22 Pre-Operative Diagnosis: IAL Post-Operative Diagnosis: same Surgery / Procedure Performed: Spontaneous Vaginal Delivery Type of Anesthesia: Epidural Special Medications: none Estimated Blood Loss: 100 Fluids Replaced: crystalloid Findings Description of Procedure: Patient began pushing and delivered the head in the ASHLYN presentation. The head was delivered atraumatically and a loose nuchal cord ?1 was identified and the infant delivered through without complication. The anterior and posterior shoulders delivered without complication followed by the rest of the infant and the infant was placed on the maternal abdomen. Delayed cord clamping was employed for approximately 60 seconds. Cord was clamped and cut and gentle traction was applied to the cord and the placenta delivered spontaneously immediately following it was noted to be intact with three-vessel cord. The perineum and vagina were inspected and noted to have no laceration. EBL was 100 cc. Patient and tolerated delivery well. Presentation: ASHLYN Amniotic Membrane Rupture Type: Artificial Amniotic Fluid Description: Clear Placental Delivery Description: Spontaneous Placenta Disposition: [facility] Cord Vessel Description: 3 Vessels Cord Entanglement: Around neck x 1, tight A Gender: Male Delayed Cord Clamping: Yes Post Vaginal Delivery Medications Given After Delivery: IV Pitocin Episiotomy Description: None Laceration: None Complication Complications: None Procedures Urinary/Genital [id number]: [id number] Vaginal Delivery+PP Care([facility])
[2022-06-05] MEDS: Acetaminophen 500 MG Tablet 1000 MG PO ×2 (08:57→20:50)
[2022-06-05] MEDS: Naproxen 500 MG Tablet PO (13:43)
--- NOTE | 2022-06-05 16:02 | DCINST_ITS ---
Discharge Instructions Diet Discharge Diet: No restrictions Activity Discharge Activity: Return to Normal Activity, May Drive, May Shower and May Take a Tub Bath (in 4 weeks) May resume sexual activity in: 6-8 weeks (after seen by OB provider) Weight Bearing Status: Full weight bearing Lifting Restrictions: none Dressing / Incision Call your doctor if you observe: Fever of 101 or Higher, Inability to urinate, Using more than 1 pad per hour (for more than 2 hours in a row or more), Shortness of breath, Dizziness, Chest pain and - (headache not controlled with tylenol, change in vision) Follow Up Care When: in 6 weeks for visit, call the office to make the appointment. If you had elevated blood pressures call the office to be seen within 1 week. Test Results: Test results from this visit will be discussed in further detail at your follow- up appointment, if applicable. Discharge Plan Admission Admit Date/Time: 06/04/22 21:30 Attending Provider: Miranda Schneider Primary Care Provider: Care Physician,Elise Primary Discharge Orders/Prescriptions Prescriptions: No Action PNV-DHA 27 mg iron-1 mg -300 mg capsule 1 cap PO DAILY Referrals / Follow Up: Care Physician,No Primary [Primary Care Provider] - Disposition Disposition (needs filled in before D/C Order can be placed): Home, Self Care
[2022-06-06] MEDS: Naproxen 500 MG Tablet PO (01:15)
[2022-06-06 04:22] VITALS: BP 113/72; PULSE 92; PULSE 97; RESP 17; TEMP 36.6; O2SAT 97; O2SAT 98
[2022-06-06] MEDS: Acetaminophen 500 MG Tablet 1000 MG PO (07:57)
[2022-06-06 07:59] VITALS: BP 117/81; PULSE 94; O2SAT 97
[2022-06-06 08:00] VITALS: BP 117/81; PULSE 85; RESP 16; TEMP 37; O2SAT 99
--- NOTE | 2022-06-06 09:27 | PCM.PN.OB ---
Subjective Subjective Patient doing well without complaints. Tolerating PO. Ambulating and voiding without difficulty. Feeding well. Denies chest pain, shortness of breath, calf pain/swelling, fevers, chills, lightheadedness. Objective Data Objective Data Vital Signs: Vital Signs Temp Pulse Resp BP Pulse Ox O2 Del Method 98.6 F 85 16 117/81 H 99 Room Air 06/06/22 08:00 06/06/22 08:00 06/06/22 08:00 06/06/22 08:00 06/06/22 08:00 06/06/22 08:00 Oxygen Delivery Method Room Air Weight: 177 lb 0.499 oz Body Mass Index (BMI) 30.4 Intake & Output: Intake and Output for Last 24 Hours 06/04/22 06/05/22 06/06/22 23:59 23:59 23:59 Intake Total 521.67 / 521.67 2484.04 / 2484.04 Output Total 1350 / 1350 Balance 521.67 / 521.67 1134.04 / 1134.04 Lab / Micro Data Result Diagrams: 06/04/22 22:02 Labs: Laboratory Results - last 24 hr 06/05/22 11:45: Screen NEGATIVE, Baby's Blood Type A POSITIVE, Baby's PATO NEGATIVE Micro: Microbiology 06/04/22 22:00 Nasal Secretion SARS-CoV-2 Antigen (Rapid) - Final ROS Constitutional Constitutional: Denies chills, fatigue, fever(s), poor appetite or weakness Eyes Eyes: Denies blurry vision, change in vision, seeing flashes or spots in vision ENT HEENT: Denies dizziness, headache(s), loss taste/smell or sore throat Cardiovascular Cardiovascular: Denies chest pain, dizziness, dyspnea, irregular heart rhythm, palpitations or rapid heart rate Respiratory/Chest Respiratory/Chest: Denies chest tightness, cough, dyspnea or breast pain Gastrointestinal Gastrointestinal: Denies abdominal pain, constipation or vomiting Genitourinary Genitourinary: Denies dysuria or flank pain Musculoskeletal Musculoskeletal: Denies difficulty walking, joint pain, limited range of motion or numbness Neurologic Neurologic: Denies abnormal movements, abnormal speech, dizziness, numbness, seizure-like activity or syncope Psychiatric Psychiatric: Denies anxiety, behavioral changes, change in appetite, confusion, depression or suicidal thoughts Physical Exam Const alert, oriented x3 and no apparent distress General Appearance: cooperative and comfortable Resp normal respiratory effort Cardio regular rate GI normal to inspection, nondistended, normoactive bowel sounds GI Narrative: uterus is firm below umbilicus Palpation: soft Back/Spine no CVA tenderness and thoraco-lumbar ROM normal Extremity normal to inspection, no clubbing, cyanosis or edema, no calf tenderness and no pedal edema Psych mental status grossly normal, thought process normal, cooperative, affect normal, speech normal, activity/motor behavior normal, denies homicidal ideation and denies suicidal ideation Assessment & Plan (1) Vaginal delivery: COMMENT: SM IAL 41 boy Eagle (2) Rh negative status during : QUALIFIERS: Trimester: second trimester Qualified Code(s): O26.892 - Other specified related conditions, second trimester; Z67.91 - Unspecified blood type, Rh negative COMMENT: rhogam prn and at 28 weeks (3) Contraception management: QUALIFIERS: Contraceptive encounter type: other encounter for contraceptive management Qualified Code(s): Z30.8 - Encounter for other contraceptive management COMMENT: wants paragard pp (4) Anxiety and depression: COMMENT: no meds, encouraged counseling; pp depression and consider med at 36 wk PLAN: Plan s/p PPD # 1 1. routine post delivery care 2. breast feeding- support given 3. rh positive 4. rubella immune 5. dc to home today. pt to follow up soon for baby bili jaundice levels
--- NOTE | 2022-06-06 12:50 | CASEMGMT ---
Addendum entered by Deborah Washington 06/06/22 20:38: SW will also watch for Meconium results. Original Note: Social Work Assessment SW spoke with RN, no concerns noted and MOB has been appropriate with care. MOB: Shayy Silveira G/P: 12/23 PNC: Dr. Schneider Control: Pt states that she is still thinking about it, thought about Copper IUD. MOB states that she will talk to Dr. Schneider about it. MOB states that JEANETTE may also be getting a Vasectomy. Baby: Boy Eagle : 06/05/2022 Apgars: 7/9 Weight: 3980 G Civil Division Commander Deputy Sheriff: Anneliese MOB states she plans to feed combination MOB's other children: MOB reports 2 year old daughter named Fozia. MOB reports that she may switch Fozia's Civil Division Commander Deputy Sheriff to [facility] and states they may also have Eagle's Civil Division Commander Deputy Sheriff be [facility]. Housing: MOB Reports appropriate housing and states no concerns. Transportation: MOB reports access to transportation and has no concerns. Supplies: MOB Reports to have all needed baby supplies for . Supports: MOB states Jose (FOB), his mom, and the rest of his family will be good support. MOB reports that her family is in [facility]. Educations Level: MOB states that she graduated High School with no learning difficulties. MOB states that she did not attend college or tech school. 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 MOB states she is off work until August 11 and then will be returning Sandwich [employer]. Agency Involvement: JFS: Pt has [employer] insurance Pt reports no other agency involvement. SW asked if they would be interested in [facility] referral and MOB denied. MOB Mental Health Hx: MOB states that she has no Mental Health History. Per chart, pt is on Anxiety Medications. MOB reports that she had mild PPD with her first baby and was on Lexapro. MOB reports that she was off Lexapro before she had this baby. MOB reports no current suicidal or homicidal thoughts. PHQ-2 score: 0 MOB AOD History: MOB reports to have smoked marijuana before she found out she was . MOB states that once she found out she was , she did not smoke Marijuana again. MOB reports no other substance use. MOB states she does not plan on resuming Marijuana when she is discharged. SW spoke with MOB that if she decides to resume smoking Marijuana to leave baby with someone responsible and smoke outside. MOB state understanding. FOB: Jose Hernández Time Together: 3 Years. Employment: [employer]. FOB reports he is off work until next week. Other children: None other than daughter Fozia. FOB Mental Health/AOD/Domestic Violence: MOB reports no Mental Health History. FOB states that he does drink, but not regularly. FOB states that he drinks socially and denied any ETOH concerns. MOB and FOB denied any domestic violence concerns. SW educated MOB and FOB on Shaken Baby, Post Depression, and Safe Sleeping. Resource packet provided. [place] sleeping during this worker's assessment with MOB and FOB so SW unable to see interaction between MOB and . MOB appeared appropriate with affect, eye contact and behavior. FOB appropriate as well during conversation. SW reviewed chart. MOB found out she was 10-30-2021 and tested positive for THC. Per chart, pt had another appointment with her OBGYN 12-24-2021 and again tested positive for THC. Of note, MOB toxicology screen is negative and newborns's toxicology screen is negative. Since MOB did test positive for THC during on dates 10-30-2021 and 12-24-2021, this worker did call [facility] CPS and CPS report made to [facility]. Eden states they probably will not go out for pt but will make a note. Plan: Home. CPS Report made due to MOB testing positive for THC during . Deborah Washington FIELD ADJUSTER, AFFILIATE MARKETING SPECIALIST
--- NOTE | 2022-06-19 08:19 | CASEMGMT ---
Social Work Note SW received letter from [facility] stating the referral was not accepted for assessment/investigation. Deborah Washington BUILDING TRADES INSTRUCTOR, RN MED SURG
--- NOTE | 2022-06-24 08:42 | CASEMGMT ---
Social Work Note Meconium results reviewed for pt's baby Eagle Silveira. Meconium is negative. SW placed a call to [facility] CPS and updated Musa that Meconium is negative. Deborah Washington CHANGE ATTENDANT, COLLECTIONS ASSOCIATE
== END 2022-06-06 12:32 | disposition home or self-care (01) | DRG 560 ==
PROVIDERS: Admitting Provider Obstetrics & Gynecology; Referring Provider Obstetrics & Gynecology; Visit Provider Obstetrics & Gynecology
DX: O48.0 Post-term pregnancy (principal); Z37.0 Single live birth; O69.81X0 Labor and delivery complicated by cord around neck, without compression, not applicable or unspecified; Z3A.41 41 weeks gestation of pregnancy
CPT/HCPCS: 59025; 59050; 76816; 80307; 85025; 85461; 86850; 86900; 86901; 87811; 90384; 99218; J7120; G0378; J2790

== ENCOUNTER → 2022-06-04 | Outpatient (CLI) | payer MEDICAID, SELFPAY ==
--- NOTE | 2022-06-04 15:26 | US_ITS ---
STUDY: SECOND AND THIRD TRIMESTER OBSTETRICAL ULTRASOUND - LIMITED REASON FOR EXAM: Female, 27 years old wellbeing--ASHLEY AND GROWTH LMP: 08/21/2021 PRIOR ULTRASOUND: None. TECHNIQUE: Transabdominal TECHNICAL QUALITY: Adequate. FINDINGS: There is a single intrauterine fetus. The fetus is in a cephalic presentation. There is demonstrated cardiac activity with a heart rate of 132 bpm. There is increased amniotic fluid volume consistent with polyhydramnios. The largest amniotic fluid pocket measures 6.0 cm. The amniotic fluid index (ASHLEY) is 20.6 cm. The placenta is anterior in location and is not low lying. There are Grade 2 placental changes. The cervix measures cm in length. BIOMETRY: BPD: 9.7 cm: 39 weeks, 5 days HC: 36.6 cm: weeks, days AC: 35.3 cm: 39 weeks, 1 days FL: 7.5 cm: 38 weeks, 1 days Age by LMP: 41 weeks, 0 days. MIESHA by LMP: 05/28/2022. age by current US: 39 weeks, 0 days. MIESHA by current US: 06/11/2022. Estimated weight: 3727 grams, +/- 559 grams, percentile. Gender: US/OB Limited With Biometrics IMPRESSION: Living intrauterine at 39 weeks 0 days as described above. Electronically Signed: Gage Hartman MD at 17:18 EDT ,
== END | disposition home or self-care (01) ==
LOC: US 15:25
PROVIDERS: Referring Provider Obstetrics & Gynecology; Visit Provider Obstetrics & Gynecology
DX: Z34.83 Encounter for supervision of other normal pregnancy, third trimester (principal)
CPT/HCPCS: 76816

== ENCOUNTER → 2023-07-16 | Outpatient (CLI) | payer BC, SELFPAY ==
[2023-07-21 22:09] LABS: HPV Reflexed? NOT INDICATED
== END | disposition home or self-care (01) ==
LOC: LABSPEC 11:06
PROVIDERS: Referring Provider Obstetrics & Gynecology; Visit Provider Obstetrics & Gynecology
DX: Z12.4 Encounter for screening for malignant neoplasm of cervix (principal)
CPT/HCPCS: 88175; G0145